=== PATIENT | female | born 1995 | race Two or more races ===

== ENCOUNTER 2016-11-16 00:32 | Emergency (ER) | payer SELFPAY | END 2016-11-16 05:55 | disposition left against medical advice (07) | LOC: ED 00:32 | DX: Z02.89 Encounter for other administrative examinations (principal); H57.8 Other specified disorders of eye and adnexa ==

== ENCOUNTER 2017-05-16 23:39 | Emergency (ER) | payer SELFPAY ==
[2017-05-16 23:51] VITALS: BP 122/80; RESP 18
--- NOTE | 2017-05-17 00:04 | ED PDOC ---
Arrival/HPI <Valentin Reyes - Last Filed: 05/17/17 00:22> - General Historian: Patient <Sanya Lilly - Last Filed: 05/17/17 02:07> - General Chief Complaint: ENT Problem Time Seen by Provider: 05/16/17 23:53 - History of Present Illness Narrative History of Present Illness (Text): 05/16/17 23:54 22 y/o female, pmh including tonsillitis, nkda, c/o throat pain and fever started 2 days ago. Aching pain, aggravated by swallowing, no night sweat, feels feverish at home, no difficulty turning the neck, no dizziness, no numbness or tingling, no urinary symptoms, no other medical or psychological complaints. (Sanya Lilly) Past Medical History - Provider Review Nursing Documentation Reviewed: Yes - Pulmonary Hx Respiratory Disorders: Yes Hx Asthma: Yes - Psychiatric Hx Substance Use: No <Sanya Lilly - Last Filed: 05/17/17 02:07> Family/Social History - Physician Review Nursing Documentation Reviewed: Yes Family/Social History: Unknown Family HX Smoking Status: Never Smoked Hx Alcohol Use: Yes Frequency of alcohol use: Socially Hx Substance Use: No <Sanya Lilly - Last Filed: 05/17/17 02:07> Allergies/Home Meds <Valentin Reyes - Last Filed: 05/17/17 00:22> <Sanya Lilly - Last Filed: 05/17/17 02:07> Allergies/Adverse Reactions: Allergies peanut Allergy (Verified 05/16/17 23:43) ANAPHYLAXIS Home Medications: Home Meds Medication Instructions Recorded Confirmed Albuterol HFA [Ventolin HFA 90 2 puff IH PRN PRN 05/16/17 05/16/17 mcg/actuation (8 g)] Review of Systems - Review of Systems Constitutional: Fatigue, Fevers Eyes: absent: Vision Changes ENT: Sore Throat. absent: Hearing Changes, Rhinorrhea Respiratory: absent: SOB, Cough, Sputum Cardiovascular: absent: Chest Pain Gastrointestinal: absent: Abdominal Pain, Diarrhea, Nausea, Vomiting Skin: absent: Rash, Pruritis Neurological: absent: Headache, Dizziness Psychiatric: absent: Anxiety, Depression <Sanya Lilly - Last Filed: 05/17/17 02:07> Physical Exam Vital Signs Reviewed: Yes Temperature: Afebrile Blood Pressure: Normal Pulse: Tachycardic Respiratory Rate: Normal Appearance: Positive for: Well-Appearing, Non-Toxic Pain Distress: Moderate Mental Status: Positive for: Alert and Oriented X 3 - Systems Exam Head: Present: Atraumatic, Normocephalic Pupils: Present: PERRL Extroacular Muscles: Present: EOMI Conjunctiva: Present: Normal Mouth: Present: Moist Mucous Membranes Pharnyx: Present: ERYTHEMA, EXUDATE, TONSILS ENLARGED (bilateral with no kissing tonsils. ). No: Peritonsilar Swelling, Uvular Deviation, Muffled/ Hoarse Voice, Strider, Soft Palate/Uvular Edema Nose (External): Present: Atraumatic. No: Abrasion, Contusion, Laceration Nose (Internal): Present: Normal Inspection, No Active Bleeding. No: Rhinorrhea , Septal Hematoma, Epistaxis Neck: Present: Normal Range of Motion, Trachea Midline. No: Meningeal Signs, MIDLINE TENDERNESS, Paraspinal Tenderness, Lymphadenopathy Respiratory/Chest: Present: Clear to Auscultation, Good Air Exchange. No: Respiratory Distress, Accessory Muscle Use Cardiovascular: Present: Regular Rate and Rhythm, Normal S1, S2. No: Murmurs Abdomen: Present: Normal Bowel Sounds. No: Tenderness, Distention, Peritoneal Signs Back: Present: Normal Inspection Upper Extremity: Present: Normal Inspection. No: Cyanosis, Edema Lower Extremity: Present: Normal Inspection. No: Edema Neurological: Present: GCS=15, Speech Normal, Motor Func Grossly Intact, Gait Normal, Memory Normal Skin: Present: Warm, Dry, Normal Color. No: Rashes Psychiatric: Present: Alert, Oriented x 3, Normal Insight, Normal Concentration <Sanya Lilly - Last Filed: 05/17/17 02:07> Vital Signs Temp Pulse Resp BP Pulse Ox 05/16/17 23:47 99.6 F 118 H 18 122/80 97 Medical Decision Making <Valentin Reyes - Last Filed: 05/17/17 00:22> <Sanya Lilly - Last Filed: 05/17/17 02:07> ED Course and Treatment: 05/17/17 00:05 -Rapid flu -labs/tylenol/fluid -observe and reassess 05/17/17 02:01 -Pain resolved, augmentin ordered. -Urine hcg is positive -Pt. refused UA testing as she has no urinary symptoms, pt. has no vaginal bleeding or pelvic discomfort. -Pt. is tolerating po, eating and drinking well, will discharge home. -Beta hcg is approx 6-7 weeks . -Discharge home with augmentin, tylenol, stay hydrated, salt water gargling, follow up with your own pmd and ENT/obgyn within 2 days, return to the ER for any new or worsening signs or symptoms. (Sanya Lilly) - Lab Interpretations Lab Results: 05/17/17 00:19 05/17/17 00:19 Lab Results 05/17/17 00:19: Beta HCG, Quant [id number] H 05/17/17 00:19: Sodium 136, Potassium 3.5 L, Chloride 103, Carbon Dioxide 22, Anion Gap 14, BUN 3 L, Creatinine 0.5 L, Est GFR ( Amer) > 60, Est GFR ( Non-Af Amer) > 60, Random Glucose 89, Calcium 9.6, Total Bilirubin 0.3, AST 23, ALT 34, Alkaline Phosphatase 62, Total Protein 7.8, Albumin 4.0, Globulin 3.8, Albumin/Globulin Ratio 1.1 05/17/17 00:19: WBC 12.7 H, RBC 4.16, Hgb 11.5 L, Hct 32.8 L, MCV 78.8 L, MCH 27.6, MCHC 35.1, RDW 14.7 H, Plt Count 311, MPV 8.9, Gran % 77.1 H, Lymph % ( Auto) 14.3 L, [place] % (Auto) 6.7 H, Eos % (Auto) 1.7, Baso % (Auto) 0.2, Gran # 9.78 H, Lymph # 1.8, [place] # 0.9 H, Eos # 0.2, Baso # 0.02 05/17/17 00:03: Influenza Typ A,B (EIA) Negative for flu a/b - Medication Orders Current Medication Orders: Discontinued Medications Acetaminophen (Tylenol 650mg/20.3ml Solution Ud) 650 mg PO STAT STA Stop: 05/17/17 00:07 Last Admin: 05/17/17 00:28 Dose: 650 mg MAR Pain/Vitals Document 05/17/17 00:28 OCS (Rec: 05/17/17 00:28 OCS [id number]) Pain Reassessment Is This A Pain ReAssessment? Yes Sleep Is patient sleeping during reassessment? No Presence of Pain Presence of Pain Yes Pain Scale Used Pain Scale Used Numeric Location Pain Location Body Site Throat Description Constant Aggravating Factors ADL's Amoxicillin/Clavulanate Potassium (Augmentin 400-57 Mg/5 Ml Susp) 875 mg PO STAT STA PRN Reason: Protocol Stop: 05/17/17 00:50 Last Admin: 05/17/17 01:42 Dose: 875 mg - PA / MEMBER SERVICE SPECIALIST / Resident Statement TRACEY has reviewed & agrees with the documentation as recorded. <Valentin Reyes - Last Filed: 05/17/17 00:22> - PA / MEMBER SERVICE SPECIALIST / Resident Statement TRACEY has reviewed & agrees with the documentation as recorded. <Sanya Lilly - Last Filed: 05/17/17 02:07> Disposition/Present on Arrival <Valentin Reyes - Last Filed: 05/17/17 00:22> - Present on Arrival Any Indicators Present on Arrival: No History of DVT/PE: No History of Uncontrolled Diabetes: No Urinary Catheter: No History of Decub. Ulcer: No History Surgical Site Infection Following: None - Disposition Have Diagnosis and Disposition been Completed?: Yes Disposition Time: 02:05 Patient Plan: Discharge <Sanya Lilly - Last Filed: 05/17/17 02:07> - Disposition Diagnosis: Tonsillitis, Disposition: HOME/ ROUTINE Condition: IMPROVED Additional Instructions: -Discharge home with augmentin, tylenol, stay hydrated, salt water gargling, follow up with your own pmd and ENT/obgyn within 2 days, return to the ER for any new or worsening signs or symptoms. Prescriptions: Acetaminophen [Acetaminophen Oral Soln] 15.5 ml PO Q6 PRN #300 ml PRN Reason: Other Amoxicillin/Clavulanate [Augmentin 400-57] 10.5 ml PO BID #210 ml Referrals: Brando Yi DO [Staff Provider] - Follow up with primary jA Juarez MD [Staff Provider] - Follow up with primary [facility] [Outside] - Follow up with primary Forms: [employer] (Malay), WORK NOTE
[2017-05-17] MEDS ORDERED: Acetaminophen 650mg/20.3ml solution UD PO STA (00:06)
[2017-05-17 00:47] LABS: BASO # 0.02 K/mm3 (0.0-2.0); BASO % 0.2 % (0.0-3.0); EOS # 0.2 (0.0-0.7); EOS % 1.7 % (1.5-5.0); GRAN # 9.78 (1.4-6.5); GRAN % 77.1 % (50.0-68.0); HEMOGLOBIN 11.5 g/dL (12.0-16.0); LYMPH # 1.8 (1.2-3.4); LYMPH % 14.3 % (22.0-35.0); MEAN CELL VOLUME 78.8 fl (80.0-105.0); MEAN CORPUSCULAR HEMOGLOBIN 27.6 pg (25.0-35.0); MEAN CORPUSCULAR HGB CONC 35.1 g/dl (31.0-37.0); MEAN PLATELET VOLUME 8.9 fl (7.0-11.0); MONO # 0.9 (0.1-0.6); MONO % 6.7 % (1.0-6.0); RBC 4.16 10^6/uL (3.5-6.1); RED CELL DISTRIBUTION WIDTH 14.7 % (11.5-14.5); WHITE BLOOD COUNT 12.7 10^3/ul (4.5-11.0)
[2017-05-17] MEDS ORDERED: Amoxicillin-Clav 400-57 mg/5 ml Susp (50 ml) PO STA (00:49)
[2017-05-17 00:58] LABS: ALB/GLOB RATIO 1.1 (1.1-1.8); ALT/SGPT 34 U/L (7-56); AST/SGOT 23 U/L (14-36); BLOOD UREA NITROGEN 3 mg/dL (7-21); CALCIUM 9.6 mg/dL (8.4-10.5); GFR AFRICAN-AMERICAN > 60; GFR NON-AFRICAN AMERICAN > 60
[2017-05-17 02:23] VITALS: PULSE 89; TEMP 99.2; O2SAT 100
== END 2017-05-17 02:25 | disposition home or self-care (01) ==
LOC: ED 23:39
DX: O26.891 Other specified pregnancy related conditions, first trimester (principal); Z3A.01 Less than 8 weeks gestation of pregnancy; J03.90 Acute tonsillitis, unspecified

== ENCOUNTER 2017-08-28 12:13 | Emergency (ER) | payer BC, OTHER ==
[2017-08-28 12:34] VITALS: BMI 37.1
[2017-08-28 12:42] VITALS: RESP 18; TEMP 98.2
--- NOTE | 2017-08-28 12:54 | ED PDOC ---
Arrival/HPI - General Chief Complaint: Abdominal Pain Time Seen by Provider: 08/28/17 12:40 Historian: Patient - History of Present Illness Narrative History of Present Illness (Text): 08/28/17 14:00 22 year old female, who presents to the emergency department complaining of suprapubic pain for the past couple of days. Patient denies any nausea, vomiting , diarrhea, fever, hematuria, dysuria, or other complaints. Time/Duration: < week Symptom Onset: Sudden Symptom Course: Unchanged Past Medical History - Provider Review Nursing Documentation Reviewed: Yes - Pulmonary Hx Respiratory Disorders: Yes Hx Asthma: Yes - Genitourinary/Gynecological Hx Genitourinary Disorders: No Other/Comment: ovarian cyst - Psychiatric Hx Substance Use: No - Surgical History Hx Tonsillectomy: Yes Other/Comment: ovarian cyst removal - Anesthesia Hx Anesthesia: Yes Hx Anesthesia Reactions: No Hx Malignant Hyperthermia: No Family/Social History - Physician Review Nursing Documentation Reviewed: Yes Family/Social History: Unknown Family HX Smoking Status: Never Smoked Hx Alcohol Use: Yes Hx Substance Use: No Allergies/Home Meds Allergies/Adverse Reactions: Allergies peanut Allergy (Verified 08/28/17 12:39) ANAPHYLAXIS Home Medications: Home Meds Medication Instructions Recorded Confirmed Albuterol HFA [Ventolin HFA 90 2 puff IH PRN PRN 05/16/17 08/28/17 mcg/actuation (8 g)] Review of Systems - Physician Review All systems were reviewed & negative as marked: Yes - Review of Systems Constitutional: absent: Fevers Gastrointestinal: Abdominal Pain (suprapubic). absent: Diarrhea, Vomiting Genitourinary Female: absent: Dysuria, Frequency Musculoskeletal: absent: Back Pain Skin: absent: Rash Neurological: absent: Headache Physical Exam Vital Signs Reviewed: Yes Vital Signs Temp Pulse Resp BP Pulse Ox 08/28/17 15:20 74 18 121/58 L 99 08/28/17 13:45 79 18 119/52 L 99 08/28/17 12:40 98.2 F 89 18 117/44 L 98 Temperature: Afebrile Blood Pressure: Hypotensive Pulse: Regular Respiratory Rate: Normal Appearance: Positive for: Well-Appearing, Non-Toxic, Comfortable Pain Distress: None Mental Status: Positive for: Alert and Oriented X 3 - Systems Exam Head: Present: Atraumatic, Normocephalic Pupils: Present: PERRL Extroacular Muscles: Present: EOMI Conjunctiva: Present: Normal Respiratory/Chest: Present: Clear to Auscultation, Good Air Exchange. No: Respiratory Distress, Accessory Muscle Use, Wheezes, Rales, Rhonchi Cardiovascular: Present: Regular Rate and Rhythm, Normal S1, S2. No: Murmurs Abdomen: Present: Normal Bowel Sounds. No: Tenderness, Distention, Peritoneal Signs, Rebound, Guarding Neurological: Present: GCS=15, CN II-XII Intact, Speech Normal Skin: Present: Warm, Dry, Normal Color. No: Rashes Psychiatric: Present: Alert, Oriented x 3, Normal Insight, Normal Concentration Medical Decision Making ED Course and Treatment: 08/28/17 Impression: 22 year old female with unremarkable physical exam complaining of suprapubic pain. Plan: -- Labs -- Urinalysis -- Reassess and disposition Progress Notes: - Lab Interpretations Lab Results: 08/28/17 14:30 08/28/17 14:30 Lab Results 08/28/17 14:30: Beta HCG, Quant < 2.39 08/28/17 14:30: Sodium 145, Potassium 3.9, Chloride 109 H, Carbon Dioxide 25, Anion Gap 16, BUN 6 L, Creatinine 0.6 L, Est GFR ( Amer) > 60, Est GFR ( Non-Af Amer) > 60, Random Glucose 86, Calcium 9.4, Magnesium 1.7, Total Bilirubin 0.5, AST 17, ALT 21, Alkaline Phosphatase 76, Total Protein 7.5, Albumin 4.2, Globulin 3.3, Albumin/Globulin Ratio 1.3, Lipase 73 08/28/17 14:30: WBC 7.4 D, RBC 4.46, Hgb 12.1, Hct 36.0, MCV 80.7, MCH 27.1, MCHC 33.6, RDW 14.6 H, Plt Count 362, MPV 9.3, Gran % 54.9, Lymph % (Auto) 36.3 H, [place] % (Auto) 6.1 H, Eos % (Auto) 2.4, Baso % (Auto) 0.3, Gran # 4.08, Lymph # (Auto) 2.7, [place] # (Auto) 0.5, Eos # (Auto) 0.2, Baso # (Auto) 0.02 08/28/17 13:49: Urine Color Yellow, Urine Appearance Clear, Urine pH 6.5, Ur Specific [place] 1.020, Urine Protein Trace H, Urine Glucose (UA) Negative, Urine Ketones Negative, Urine Blood Large H, Urine Nitrate Negative, Urine Bilirubin Negative, Urine Urobilinogen 0.2, Ur Leukocyte Esterase Trace H, Urine RBC 1 - 3, Urine WBC 2 - 5, Ur Epithelial Cells 3 - 4, Urine Bacteria Small I have reviewed the lab results: Yes - Medication Orders Current Medication Orders: Discontinued Medications Sodium Chloride (Sodium Chloride 0.9%) 1,000 mls @ 999 mls/hr IV .Q1H1M STA Stop: 08/28/17 14:03 Last Admin: 08/28/17 15:11 Dose: 999 mls/hr eMAR Start Stop Document 08/28/17 15:11 HI (Rec: 08/28/17 15:11 HI [id number]) Intravenous Solution Start Date 08/28/17 Start Time 15:11 - Scribe Statement The provider has reviewed the documentation as recorded by the Scribe Disposition/Present on Arrival - Present on Arrival Any Indicators Present on Arrival: No History of DVT/PE: No History of Uncontrolled Diabetes: No Urinary Catheter: No History of Decub. Ulcer: No History Surgical Site Infection Following: None - Disposition Have Diagnosis and Disposition been Completed?: Yes Diagnosis: Amenorrhea, UTI (urinary tract infection) Disposition: HOME/ ROUTINE Disposition Time: 14:40 Patient Problems: Current Active Problems Problem Status Onset Amenorrhea Acute UTI (urinary tract infection) Acute Condition: GOOD Discharge Instructions (ExitCare): Urinary Tract Infections in Adults, Absent or Irregular Periods Additional Instructions: Thank you for letting us take care of you today. The emergency medical care you received today was directed at your acute symptoms. If you were prescribed any medication, please fill it and take as directed. It may take several days for your symptoms to resolve. Return to the Emergency Department if your symptoms worsen, do not improve, or if you have any other problems. Please contact your doctor or call one of the physicians/clinics you have been referred to that are listed on the Patient Visit Information form that is included in your discharge packet. Bring any paperwork you were given at discharge with you along with any medications you are taking to your follow up visit. Our treatment cannot replace ongoing medical care by a primary care provider (PCP) outside of the emergency department. Thank you for allowing the [facility] team to be part of your care today. Followup with your [facility] doctor and our clinic in 5-7 days for re-evaluation and further management. Prescriptions: Nitrofurantoin Macrocrystals [Macrobid] 100 mg PO BID #10 cap Referrals: [facility] [Outside] - Follow up with primary [facility] [Outside] - Follow up with primary Forms: [employer] (Faroese)
[2017-08-28] MEDS ORDERED: Sodium Chloride 0.9% 1,000 ML IV STA (13:03)
[2017-08-28 13:45] VITALS: O2SAT 99
[2017-08-28 13:59] LABS: PH,URINE 6.5 (4.7-8.0); URINE APPEARANCE CLEAR (CLEAR); URINE BILIRUBIN NEGATIVE (NEGATIVE); URINE BLOOD LARGE (NEGATIVE); URINE COLOR YELLOW (YELLOW); URINE GLUCOSE (UA) NEGATIVE (NEGATIVE); URINE LEUKOCYTE ESTERASE TRACE Leu/uL (NEGATIVE); URINE PROTEIN TRACE mg/dL (<30 mg/dL); URINE UROBILINOGEN 0.2 E.U./dL (<1 E.U./dL)
[2017-08-28 14:22] LABS: URINE BACTERIA SMALL (NEG)
[2017-08-28 14:47] LABS: BASO # 0.02 K/mm3 (0.0-2.0); BASO % 0.3 % (0.0-3.0); EOS # 0.2 (0.0-0.7); EOS % 2.4 % (1.5-5.0); GRAN # 4.08 (1.4-6.5); GRAN % 54.9 % (50.0-68.0); HEMOGLOBIN 12.1 g/dL (12.0-16.0); LYMPH # 2.7 (1.2-3.4); LYMPH % 36.3 % (22.0-35.0); MEAN CELL VOLUME 80.7 fl (80.0-105.0); MEAN CORPUSCULAR HEMOGLOBIN 27.1 pg (25.0-35.0); MEAN CORPUSCULAR HGB CONC 33.6 g/dl (31.0-37.0); MEAN PLATELET VOLUME 9.3 fl (7.0-11.0); MONO # 0.5 (0.1-0.6); MONO % 6.1 % (1.0-6.0); RBC 4.46 10^6/uL (3.5-6.1); RED CELL DISTRIBUTION WIDTH 14.6 % (11.5-14.5); WHITE BLOOD COUNT 7.4 10^3/ul (4.5-11.0)
[2017-08-28 14:57] LABS: ALB/GLOB RATIO 1.3 (1.1-1.8); ALBUMIN 4.2 g/dL (3.0-4.8); ALT/SGPT 21 U/L (7-56); AST/SGOT 17 U/L (14-36); BLOOD UREA NITROGEN 6 mg/dL (7-21); CALCIUM 9.4 mg/dL (8.4-10.5); GFR AFRICAN-AMERICAN > 60; GFR NON-AFRICAN AMERICAN > 60; LIPASE 73 U/L (23-300)
[2017-08-28 15:20] VITALS: BP 121/58; PULSE 74
== END 2017-08-28 15:30 | disposition home or self-care (01) ==
LOC: ED 12:13
DX: N39.0 Urinary tract infection, site not specified (principal); N91.2 Amenorrhea, unspecified
CPT/HCPCS: 80053; 81001; 83690; 83735; 84702; 85025; 87086; 99284; J7040